=== PATIENT | male | born 1995 | race Caucasian/White ===

== ENCOUNTER 2020-12-31 09:39 | Emergency (ER) | payer OTHER ==
[~2020-12-31 09:39] MED LIST: VIBRAMYCIN100 MG PO
[2020-12-31 12:02] LABS: HEMOGLOBIN 15.4 gm/dl (14.0-17.5); WHITE BLOOD COUNT 4.9 K/UL (4.5-11.0)
[2020-12-31 12:23] LABS: BUN/CREATININE RATIO 13 (0-10)
== END 2020-12-31 13:55 | disposition home or self-care (01) ==
LOC: ER1 09:39
PROVIDERS: Physician Assistant
DX: N20.1 Calculus of ureter (principal)
CPT/HCPCS: 80053; 81001; 85025; 99284